=== PATIENT | male | born 1965 | race Two or more races ===

== ENCOUNTER 2024-03-08 06:38 | Day surgery (SDC) | payer BC, SELFPAY ==
[2024-03-08] VITALS (9 sets, daily range): BP systolic 117–131; BP diastolic 78–96; BMI 27.1
[2024-03-08] MEDS: TYLENOL 1000 MG PO (09:18)
[2024-03-08] MEDS: NORMOSOL-R 1000 IV (09:20)
--- NOTE | 2024-03-08 09:23 | W.SUR.PREOP ---
Pre-Operative Surgical Note
-
I have examined this patient prior to the performance of the scheduled procedure.
The patient's condition is unchanged from the time of the current History and
Physical and the patient is able to undergo the scheduled procedure.
--- NOTE | 2024-03-08 11:02 | W.IMMPOSTOP ---
Surgical Immed Post Op Note
-
Primary Surgeon: Sonu Zhao MD
Assisting Surgeon: None
Pre-op Diagnosis: Umbilical hernia
Post-op Diagnosis: Same
Procedure Performed: Open umbilical hernia repair with mesh (preperitoneal)
Anesthesia Type: General
Specimen / Cultures: None
Estimated Blood Loss: 1 cc
Complications: None
Operative Findings: 1.8 cm umbilical defect repaired with a running 0 PDS suture reinforced with a 4 x 4 centimeter piece of Bard soft polypropylene uncoated mesh in the preperitoneal space.
--- NOTE | 2024-03-08 11:03 | OR.RPT ---
Operative Report
Operative Report
Patient Name: Christos Salgado
: 1965
Date of Operation: 03/08/2024
Preoperative Diagnosis: Umbilical hernia
Postoperative Diagnosis: Same
Procedure(s):
Open umbilical hernia
Surgeon(s):
Dr. Zhao
Lending Advisor(s):
NICKI Jewell
Anesthesia: General
Estimated Blood Loss: 1 cc
Urine Output: None
Drains/Lines/Implants: 4 x 4 cm Bard soft polypropylene uncoated mesh
Specimens: None
Indication for surgery:
The patient has a symptomatic umbilical hernia. After review of their therapeutic options, they elected to pursue open repair.
Operative Findings: 1.8 cm umbilical defect repaired with a running 0 PDS suture reinforced with a 4 x 4 centimeter piece of Bard soft polypropylene uncoated mesh in the preperitoneal space.
Details of the operation:
After successful induction of anesthesia, the patient was prepped and draped in the supine position. A team timeout was performed confirming administration of DVT prophylaxis, IV antibiotics and SCDs. The skin was anesthestized with 0.25% Marcaine
and an infraumbilical incision was made and dissection carried down to the fascia. The hernia sac was then encircled and carefully dissected off of the umbilical stalk and returned to the abdomen. The defect measured 1.8 cm. The preperitoneal fat
was then dissected off of the posterior rectus sheath circumferentially for about 2 cm to create a pocket large enough to accommodate the mesh and to ensure the mesh laid completely flat. A running 0 PDS sutures was then used to closed the defect
taking intermittent small bites of the underlying mesh tethered in place. The umbilical stalk was then tacked down to the fascia with a 3-0 Vicryl suture. The dermis was then approximated with interrupted 3-0 Vicryl sutures followed by Dermabond.
Once the glue had dried, we placed a folded up piece of gauze into the umbilicus and covered it with a large Tegaderm dressing and then suctioned out the gauze to create a vacuum dressing to help obliterate the space. The patient returned to
the Recovery Room in stable condition. Sponge and instrument counts were correct. No specimens sent to Pathology.
I was the attending physician and performed the procedure with assistance from the VIDEO CAMERA OPERATOR above. I was present for all portions of the case
Sonu Zhao MD
== END 2024-03-08 12:29 | disposition home or self-care (01) ==
LOC: SDS 06:38
PROVIDERS: ATTENDING PHYSICIAN Surgery
DX: K42.9 Umbilical hernia without obstruction or gangrene (principal)
CPT/HCPCS: 49591

== ENCOUNTER → 2024-05-04 13:01 | Outpatient (REF) | payer BC, SELFPAY ==
[2024-05-04 16:13] LABS: Total Cholesterol 255 mg/dl (50-199)
[2024-05-04 16:14] LABS: ALT (SGPT) 20 U/L (0-50); AST (SGOT) 30 U/L (17-59); Albumin 4.2 g/dl (3.5-5.0); Alkaline Phosphatase 79 U/L (38-126); Blood Urea Nitrogen 25 mg/dl (9-20); Carbon Dioxide 30 mmol/L (22-30); Chloride 103 mmol/L (98-107); Direct Bilirubin 0.2 mg/dl (0.0-0.4); Glucose 95 mg/dl (70-99); HDL Cholesterol 57 mg/dl; LDH 212 U/L (120-246); LDL Cholesterol, Calculated 160 mg/dl; Potassium 4.6 mmol/L (3.5-5.1); Sodium 139 mmol/L (135-145); Total Bilirubin 1.5 mg/dl (0.2-1.3); Total Protein 6.9 g/dl (6.3-8.2); Triglyceride 192 mg/dl (10-149); Very Low Density Lipoprotein 38 mg/dl (0-30); eGFR 57.18
[2024-05-06 18:24] LABS: Apolipoprotein B 99 mg/dL (66-133)
[2024-05-06 18:44] LABS: Lipoprotein a (Lp a) 57 mg/dL (<=29)
== END ==
LOC: HWLAB 13:01
PROVIDERS: ATTENDING PHYSICIAN Internal Medicine Cardiovascular Disease; FAMILY PHYSICIAN Internal Medicine
DX: E78.2 Mixed hyperlipidemia (principal); R17 Unspecified jaundice; I71.9 Aortic aneurysm of unspecified site, without rupture
CPT/HCPCS: 36415; 80053; 80061; 82172; 82248; 83615; 83695; 86141

== ENCOUNTER → 2024-12-07 09:22 | Outpatient (REF) | payer BC, SELFPAY ==
[2024-12-07 12:02] LABS: % Eosinophils 4.7 % (0-6); % Immature Granulocytes 0.3 % (0-0.5); % Lymphocytes 38.6 % (20.5-51.1); % Monocytes 9.1 % (1.7-9.3); % Neutrophils 46.3 % (42.2-75.2); Absolute Eosinophils 0.2 10^3/uL (0-0.7); Absolute Lymphocytes 1.5 10^3/uL (1.2-3.4); Absolute Monocytes 0.4 10^3/uL (0.1-0.6); Absolute Neutrophils 1.8 10^3/uL (1.4-6.5); Hematocrit 40.4 % (39.0-52.0); Hemoglobin 13.6 g/dL (13.0-18.0); Mean Corp Hgb Conc. 33.7 g/dL (33.0-37.0); Mean Platelet Volume 9.6 fL (7.4-10.4); Nucleated Red Blood Cells % 0 % (-); Platelet Count 157 10^3/uL (130-400); Red Blood Cell Count 4.39 10^6/uL (4.70-6.10); Red Cell Dist. Width 13.3 % (11.5-14.5); White Blood Cell Count 3.9 10^3/uL (4.8-10.8)
[2024-12-07 12:14] LABS: ALT (SGPT) 41 U/L (0-50); AST (SGOT) 34 U/L (17-59); Albumin 4.5 g/dl (3.5-5.0); Alkaline Phosphatase 78 U/L (38-126); Blood Urea Nitrogen 27 mg/dl (9-20); Calcium 9.6 mg/dl (8.4-10.2); Carbon Dioxide 30 mmol/L (22-30); Chloride 103 mmol/L (98-107); Glucose 93 mg/dl (70-99); HDL Cholesterol 51 mg/dl; LDL Cholesterol, Calculated 37 mg/dl; Potassium 3.8 mmol/L (3.5-5.1); Sodium 141 mmol/L (135-145); Total Cholesterol 120 mg/dl (50-199); Triglyceride 160 mg/dl (10-149); Very Low Density Lipoprotein 32 mg/dl (0-30); eGFR 57.18
[2024-12-07 12:31] LABS: Urine Albumin 2+ (Neg - Trace); Urine Bilirubin Negative (Negative); Urine Character Clear (Clear); Urine Color Yellow; Urine Glucose Negative (Negative); Urine Ketone Negative (Negative); Urine Leukocyte Negative (Negative); Urine Nitrite Negative (Negative); Urine Occult Blood Negative (Negative); Urine Urobilinogen Negative (Neg - 1+)
[2024-12-07 12:43] LABS: PSA, Total - Screen 2.18 ng/ml (0.0-4.0); TSH Reflex To Free T4 2.41 uIU/ml (0.47-4.68)
[2024-12-07 13:43] LABS: Urine Mucus Many
[2024-12-07 14:10] LABS: Urine Amorphous Seen
[2024-12-07 14:14] LABS: Urine Granular Cast 0-2 /LPF (0); Urine Red Blood Cell 0-2 /HPF (0-2); Urine White Cell 0-2 /HPF (0-5)
== END ==
LOC: HWLAB 09:22
PROVIDERS: ATTENDING PHYSICIAN Internal Medicine Cardiovascular Disease; FAMILY PHYSICIAN Internal Medicine
DX: I10 Essential (primary) hypertension (principal); E78.2 Mixed hyperlipidemia; R17 Unspecified jaundice; G47.33 Obstructive sleep apnea (adult) (pediatric); E78.00 Pure hypercholesterolemia, unspecified; Z12.5 Encounter for screening for malignant neoplasm of prostate
CPT/HCPCS: 36415; 80053; 80061; 81003; 81015; 84443; 85025; G0103